=== PATIENT | female | born 1960 | race Caucasian/White ===

== ENCOUNTER → 2018-08-23 | Outpatient (REF) | payer BC ==
[~2018-08-23] VITALS: Ht 170.2 cm; Wt 90.7 kg
[~2018-08-23] MED LIST: AFRIN 12 HOUR0.05 %; AMOXICILLIN/CL875 MG PO; AMOXICILLIN500 MG PO; ASPIRIN LOW DOS81 M1 PO; CRESTOR5 MG PO; LEVOTHYROXIN100 MCG PO; LEVOTHYROXIN112 MC1 PO; LEVOTHYROXIN125 MC1 PO; LEVOTHYROXINE137 MCG PO; LEVOTHYROXINE150 MCG PO; LEVOTHYROXINE175 MCG PO; LEVOTHYROXINE75 MCG PO; LIPITOR40 M1 PO; LIPITOR40 MG PO; PAROXETINE20 M1 PO; PAROXETINE20 MG PO; PAXIL20 MG OR; SYNTHROID50 MCG OR; ULTRAM50 MG OR
[2018-08-23 15:09] VITALS: BP 131/78
== END | disposition home or self-care (01) | DRG 951 ==
LOC: PO 10:10 → ENDO 10:10 → ORM 10:30
PROVIDERS: ATTEND Internal Medicine Gastroenterology
DX: Z01.818 Encounter for other preprocedural examination (principal); Z12.11 Encounter for screening for malignant neoplasm of colon; E78.00 Pure hypercholesterolemia, unspecified; E03.9 Hypothyroidism, unspecified; E89.0 Postprocedural hypothyroidism; Z90.710 Acquired absence of both cervix and uterus

== ENCOUNTER 2018-09-01 06:36 | Day surgery (SDC) | payer BC ==
[2018-09-01 09:06] VITALS: BP 125/60
== END 2018-09-01 09:19 | disposition home or self-care (01) | DRG 951 ==
LOC: ENDO 06:36
PROVIDERS: ATTEND Internal Medicine Gastroenterology
PROC: 0DBP8ZX Excision of Rectum, Via Natural or Artificial Opening Endoscopic, Diagnostic (ICD-10-PCS; principal; 2018-09-01)
DX: Z12.11 Encounter for screening for malignant neoplasm of colon (principal); K62.1 Rectal polyp; K57.30 Diverticulosis of large intestine without perforation or abscess without bleeding; K64.8 Other hemorrhoids; K64.4 Residual hemorrhoidal skin tags